=== PATIENT | female | born 1965 | race Caucasian/White ===

== ENCOUNTER 2019-12-19 09:14 | Emergency (ER) | payer MEDICARE, SELFPAY ==
[2019-12-19 09:22] VITALS: BP 134/78; PULSE 70; RESP 20; TEMP 36.7; O2SAT 99; BMI 26.6
--- NOTE | 2019-12-19 09:37 | ED_ITS ---
Documented by User: EM Beasley 12/19/19 16:08 HPI - General Adult General: Chief complaint: General Medical Stated complaint: RIGHT HIP LEFT RIB PAIN Time Seen by Provider: 12/19/19 09:28 History of Present Illness: HPI narrative: Patient is a 54-year-old female who comes to the ED with left rib pain and right hip pain. Patient states that 2 weeks ago she was pulling her 150 pound dog off of another dog and she fell back and the dog landed on her chest. Patient states she has had pleuritic left rib pain since that incident. Patient also had a fall a month and a half ago that has caused her right hip and right thigh pain. Patient [place] and [place]. Since that fall she has had right hip pain and some right thigh pain whenever she ambulates. Any pressure on that area causes pain as well. She describes the pain in the muscles of the thigh and hip area. Denies bladder or bowel incontinence, loss of sensation in the pelvis. Associated symptoms: Reports chest pain (Pleuritic left rib pain); Deny dyspnea, headache(s), nausea, rash, palpitations or vomiting Review of Systems Const: Denies: fever, chills or fatigue Eyes: Denies: change in vision or eye discomfort ENMT: Denies: throat pain, painful swallowing, nasal discharge or nasal congestion Card: Reports: chest pain (Pleuritic left rib pain); Denies: palpitations, edema, swelling of feet/ankles, shortness of breath on exertion or shortness of breath when lying down Resp: Denies: shortness of breath, productive cough or non-productive cough GI: Denies: abdominal pain, nausea, vomiting, diarrhea, constipation or blood in stool : Denies: flank pain, painful urination or blood in urine Musc: Reports: extremity pain (Right thigh pain) and joint pain (right hip pain); Denies: neck pain, back pain or extremity swelling Skin/Breast: Denies: rash or new lesion Neuro: Denies: headache, numbness in extremities or weakness in extremities PFS ED PFSH: Social History Smoking and tobacco status: current some day smoker Physical Exam Narrative: EXAM NARRATIVE: Patient is a 54-year-old female that is sitting comfortably on the exam bed when I enter the room. Patient appears in no acute distress or pain. Const: COMMON NORMALS: oriented x3 HENMT: COMMON NORMALS: normocephalic HEAD & SCALP: normocephalic MOUTH: oral and palatal mucosa normal THROAT: posterior oropharynx normal and uvula midline Neck/C-Spine: COMMON NORMALS: supple GENERAL: Yes normal visual inspection Resp: COMMON NORMALS: normal respiratory effort, no retractions, no use of accessory muscles and clear to auscultation bilaterally AUSCULTATION: clear to auscultation bilaterally Cardio: COMMON NORMALS: regular rate, regular rhythm, S1 normal heart sound, S2 normal heart sound, no gallops, no clicks, no murmurs and peripheral pulses 2+ throughout RATE: regular rate RHYTHM: regular rhythm HEART SOUNDS: S1 normal and S2 normal PERIPHERAL PULSES: pulses 2+ throughout GI: COMMON NORMALS: normal to inspection, nondistended, normoactive bowel sounds, soft to palpation, non-tender and no masses PALPATION: Yes soft : COMMON NORMALS: Yes no CVA tenderness BLADDER/KIDNEY EXAM: Yes no CVA tenderness Back/Pelvis: COMMON NORMALS: no CVA tenderness Extremity: GENERAL: Yes normal exam except as noted RIGHT LOWER EXTREMITY: Yes hip joint Right hip: Yes inspection (normal), Yes palpation (Tenderness on lateral side of hip), Yes ROM (normal with some pain) and Yes neurovascular exam (intact) and Yes upper leg Right upper leg: Yes inspection (normal), Yes palpation (tenderness upon palpation of muscles of right thigh.) and Yes neurovascular exam (intact) Neuro: COMMON NORMALS: oriented x3 and moves all extremities Skin: COMMON NORMALS: no rashes or lesions noted GENERAL SKIN EXAM: no rashes or lesions noted and dry skin Course Reevaluation(s): Reevaluation #1: Patient's pain and hip improved after Toradol and Norflex injection. Patient's pain was much better and she was ready to be discharged. Time: 11:30 Vital Signs: Vital signs: Vital Signs Temperature 98.0 F 12/19/19 09:22 Pulse Rate 65 12/19/19 12:09 Respiratory Rate 16 12/19/19 12:09 Blood Pressure 131/87 12/19/19 12:09 Pulse Oximetry 97 12/19/19 12:09 [facility] - General Adult Imaging Data^: CXR: Attestation: I personally reviewed and interpreted this imaging study as follows: Radiologist's impression: [address] [address] XRay Report Signed Patient: Amanda Alaniz Unit #: [id number] : 1965 3 Age/Sex: 54 / F ADM Date: 12/19/19 Loc: ER Room/Bed: Attending Dr: Ordering Provider/Ordering MD: Rene Delvalle Date of Service: 12/19/19 Procedure(s): XR ribs LT 2V* [id number] Accession Number(s): [id number] Report Number: [id number] WS: [id number] LEFT RIBS, MULTIPLE VIEWS HISTORY: left rib pain after injury to chest, pleuritic COMPARISON: 09/07/2012 Ribs: No rib fractures or bone destruction identified. Lungs and mediastinum: Visualized lung is clear. XR/XR ribs LT 2V* [id number] IMPRESSION: No LEFT rib fractures identified. Dictated By: Cherie Tejeda DO Signed By: Cherie Tejeda DO Signed Date/Time: 12/19/19 1056 DD/ 1055 Xray Ortho: Attestation: I personally reviewed and interpreted this imaging study as follows: Radiologist's impression: [address] [address] XRay Report Signed Patient: Amanda Alaniz Unit #: [id number] : 1965 Age/Sex: 54 / F ADM Date: 12/19/19 Loc: ER Room/Bed: Attending Dr: Ordering Provider/Ordering MD: Rene Delvalle Date of Service: 12/19/19 Procedure(s): XR hip RT 2-3V wo/w pel* 33271 Accession Number(s): [id number] Report Number: [id number] WS: [id number] Right hip, AP and frog-leg views, 12/19/2019 Clinical Data: fall and right hip pain Comparison: Right hip, 11/22/2012. Findings: No fractures or dislocations are seen. The hip joint is intact. The soft tissues are not remarkable. The adjacent pelvis is normal. XR/XR hip RT 2-3V wo/w pel* [id number] Impression: Negative right hip. Dictated By: Dalia Pool MD Signed By: Dalia Pool MD Signed Date/Time: 12/19/19 1044 DD/ 1043 Discharge Plan Discharge Patient Disposition: Home, Self-Care Clinical Impression: Strain of right hip and thigh Qualifiers: Encounter type: initial encounter Qualified Code(s): S76.011A - Strain of muscle, fascia and tendon of right hip, initial encounter Condition: Stable Prescriptions: New Robaxin-750 750 mg tablet 750 mg PO Q8H Qty: 20 RF: 0 ketorolac 10 mg tablet 10 mg PO Q6H PRN (Reason: pain) 5 Days Qty: 30 RF: 0 No Action Aleve 220 mg Tablet 440 - 660 mg PO PRN RF: 0 ibuprofen 200 mg Tablet 200 - 800 mg PO PRN RF: 0 escitalopram oxalate 20 mg tablet 20 mg PO DAILY RF: 0 Levemir FlexTouch U-100 Insuln 100 unit/mL (3 mL) insulin pen 35 unit SUBCUT DAILY RF: 0 Invokana 300 mg tablet 300 mg PO QAM RF: 0 Discharge Orders: Discharge Order (Routine); Ordered 12/19/19 Ordered By: Rene Delvalle Referrals: Tiffanie Nevarez DO [Primary Care Provider] - Discharge Diet: Regular Discharge Activity: Increase activity as tolerated Patient Instructions: Muscle Strain (ED), Hip Sprain (ED) Activity Restrictions/Additional Instructions: Follow-up with your PCP in 7 to 10 days for reevaluation. Take the Ketorolac as prescribed. Do not exceed taking the ketorolac for over 5 days. Stop taking any Aleve or ibuprofen while taking ketorolac. Take the Robaxin (muscle relaxer) at night before bed. Remember Robaxin can cause some drowsiness. Apply ice on hip to help with any pain. Discharge Date/Time: 12/19/19 12:10 Coding Level of Care Code ED Nurse Practitioner Hospitalist for Chg Fwd Exam Comprehensive Documented by User: Otis Stephen DO 12/19/19 17:46 HPI - General Adult General: Chief complaint: General Medical Stated complaint: RIGHT HIP LEFT RIB PAIN Time Seen by Provider: 12/19/19 09:28 PFSH ED PFSH: Social History Smoking and tobacco status: current some day smoker Course Vital Signs: Vital signs: Vital Signs Temperature 98.0 F 12/19/19 09:22 Pulse Rate 65 12/19/19 12:09 Respiratory Rate 16 12/19/19 12:09 Blood Pressure 131/87 12/19/19 12:09 Pulse Oximetry 97 12/19/19 12:09 MDM - General Adult MDM Narrative: Medical decision making narrative: Reviewed case with midlevel agree with assessment and plan Discharge Plan Discharge Patient Disposition: Home, Self-Care Clinical Impression: Strain of right hip and thigh Qualifiers: Encounter type: initial encounter Qualified Code(s): S76.011A - Strain of muscle, fascia and tendon of right hip, initial encounter Condition: Stable Prescriptions: New Robaxin-750 750 mg tablet 750 mg PO Q8H Qty: 20 RF: 0 ketorolac 10 mg tablet 10 mg PO Q6H PRN (Reason: pain) 5 Days Qty: 30 RF: 0 No Action Aleve 220 mg Tablet 440 - 660 mg PO PRN RF: 0 ibuprofen 200 mg Tablet 200 - 800 mg PO PRN RF: 0 escitalopram oxalate 20 mg tablet 20 mg PO DAILY RF: 0 Levemir FlexTouch U-100 Insuln 100 unit/mL (3 mL) insulin pen 35 unit SUBCUT DAILY RF: 0 Invokana 300 mg tablet 300 mg PO QAM RF: 0 Discharge Orders: Discharge Order (Routine); Ordered 12/19/19 Ordered By: Rene Delvalle Referrals: Tiffanie Nevarez DO [Primary Care Provider] - Discharge Diet: Regular Discharge Activity: Increase activity as tolerated Patient Instructions: Muscle Strain (ED), Hip Sprain (ED) Activity Restrictions/Additional Instructions: Follow-up with your PCP in 7 to 10 days for reevaluation. Take the Ketorolac as prescribed. Do not exceed taking the ketorolac for over 5 days. Stop taking any Aleve or ibuprofen while taking ketorolac. Take the Robaxin (muscle relaxer) at night before bed. Remember Robaxin can cause some drowsiness. Apply ice on hip to help with any pain. Discharge Date/Time: 12/19/19 12:10 Coding Level of Care Code ED Nurse Practitioner Hospitalist for Darrel Doll Exam Comprehensive
--- NOTE | 2019-12-19 09:59 | XR_ITS ---
WS: [id number] Right hip, AP and frog-leg views, 12/19/2019 Clinical Data: fall and right hip pain Comparison: Right hip, 11/22/2012. Findings: No fractures or dislocations are seen. The hip joint is intact. The soft tissues are not remarkable. The adjacent pelvis is normal. XR/XR hip RT 2-3V wo/w pel* 59551 Impression: Negative right hip.
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
[2019-12-19] MEDS: ketorolac 30 mg/mL INJ IM (10:08)
[2019-12-19] MEDS: orphenadrine 30 mg/mL Inj 2 mL 60 MG IM (10:08)
[2019-12-19 12:09] VITALS: BP 131/87; PULSE 65; RESP 16; O2SAT 97
== END 2019-12-19 12:10 | disposition home or self-care (01) ==
PROVIDERS: Emergency Provider Physician Assistant; PCP Family Medicine
DX: S76.011A Strain of muscle, fascia and tendon of right hip, initial encounter (principal); F17.200 Nicotine dependence, unspecified, uncomplicated; W01.0XXA Fall on same level from slipping, tripping and stumbling without subsequent striking against object, initial encounter; Y92.828 Other wilderness area as the place of occurrence of the external cause
CPT/HCPCS: 12345; 71100; 73502; 96372; 99281; 99283; J1885; J2360

== ENCOUNTER → 2020-04-30 13:26 | Outpatient (BNVA) | payer MEDICARE, SELFPAY | PROVIDERS: PCP Family Medicine; Visit Provider Nurse Practitioner Family | DX: E11.9 Type 2 diabetes mellitus without complications (principal); E78.5 Hyperlipidemia, unspecified | CPT/HCPCS: 80053; 80061; 83036; 85025 ==

== ENCOUNTER → 2020-05-03 10:15 | Outpatient (BNVA) | payer MEDICARE, SELFPAY | PROVIDERS: PCP Nurse Practitioner Family; Visit Provider Nurse Practitioner Family | DX: E11.9 Type 2 diabetes mellitus without complications (principal); M25.561 Pain in right knee; M25.562 Pain in left knee; Z79.4 Long term (current) use of insulin; F41.9 Anxiety disorder, unspecified; F32.9 Major depressive disorder, single episode, unspecified; E78.2 Mixed hyperlipidemia; G89.29 Other chronic pain; Z91.19 Patient's noncompliance with other medical treatment and regimen | CPT/HCPCS: 82043 ==

== ENCOUNTER → 2020-05-04 09:28 | Outpatient (BNVA) | payer MEDICARE, SELFPAY | PROVIDERS: PCP Nurse Practitioner Family; Visit Provider Nurse Practitioner Family | DX: M25.561 Pain in right knee (principal); M25.562 Pain in left knee | CPT/HCPCS: 73562 ==

== ENCOUNTER → 2020-05-19 16:31 | Outpatient (BNVA) | payer MEDICARE, SELFPAY | PROVIDERS: PCP Nurse Practitioner Family; Referring Provider Nurse Practitioner Family; Visit Provider Specialist | DX: M25.561 Pain in right knee (principal); M25.562 Pain in left knee; G89.29 Other chronic pain; M17.0 Bilateral primary osteoarthritis of knee | CPT/HCPCS: 73560; 73565 ==

== ENCOUNTER 2020-07-30 13:02 | Emergency (ER) | payer MEDICARE, MEDICAID, SELFPAY ==
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
[2020-07-30 13:10] VITALS: BP 138/80; PULSE 91; RESP 18; TEMP 37.1; O2SAT 97; BMI 27.6
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
[2020-07-30 14:16] VITALS: BP 111/68; PULSE 88; RESP 18; O2SAT 97
[2020-07-30 14:28] LABS: Glucose Point of Care 411 mg/dL (70-110)
[2020-07-30 14:30] LABS: Add Urine Microscopic? NO
[2020-07-30 14:34] LABS: Basophils % 0.4 %; Eosinophils # 0.1 10^3/uL (0.0-0.8); Eosinophils % 1.1 %; Hemoglobin 15.2 g/dL (11.5-15.3); Lymphocytes # 1.5 10^3/uL (0.8-4.8); Lymphocytes % 19.1 %; Mean Corpuscular Hemoglobin 29.7 pg (28.0-34.0); Mean Corpuscular Volume 89.8 fL (81-99); Monocytes # 0.5 10^3/uL (0.2-0.9); Monocytes % 6.1 %; Neutrophils # 5.86 10^3/uL (1.8-7.7); Neutrophils % 73.2 %; Nucleated Red Blood Cells % 0 %; Platelet Count 148 10^3/cmm (130-400); Red Blood Count 5.12 10^6/uL (4.1-5.3); Red Cell Distribution Width 11.8 % (12.1-15.1)
[2020-07-30 14:41] LABS: INR 0.91 (0.8-1.2)
[2020-07-30 14:46] LABS: Alanine Aminotransferase 49 U/L (0-33); Albumin Level 3.7 g/dL (3.5-5.2); Alkaline Phosphatase 120 IU/L (35-105); Aspartate Amino Transferase 25 U/L (0-32); Blood Urea Nitrogen 5 mg/dL (6-20); Calcium 8.8 mg/dL (8.5-10.5); Carbon Dioxide 24 mmol/L (22-29); Chloride 100 mmol/L (98-107); Globulin 3.1 g/dL (1.3-4.6); Glomerular Filtration Rate 127.6 mL/min (90-130); Glucose 457 mg/dL (65-115); Osmolality Calculated 297 mOsm/kg (285-295); Sodium 135 mmol/L (136-145); Total Bilirubin 0.3 mg/dL (0.15-1.2); Total Protein 6.8 g/dL (6.6-8.7)
[2020-07-30 14:54] LABS: Bilirubin Urine Neg (Negative); Blood Urine Neg (Negative); Glucose Urine UA 4+ (Normal); Ketones Urine Negative (Negative); Leukocyte Esterase Urine Negative (Negative); Nitrate Urine Negative (Negative); Protein Urine Neg (Negative); Urine Appearance Clear (CLEAR); Urine Color Yellow (Yellow); Urobilinogen Urine Neg (Negative); pH Urine 5 (5-7)
[2020-07-30 15:02] LABS: Alcohol Level < 10 mg/dL (0-10)
[2020-07-30 15:10] LABS: Amphetamines Screen Urine Negative (Negative); Barbiturates Screen Urine Negative (Negative); Benzodiazepines Screen Urine Positive (Negative); Cocaine Screen Urine Negative (Negative); Opiate Screen Urine Negative (Negative); PCP Screen Urine Negative (Negative); THC Screen Urine Positive (Negative)
[2020-07-30 15:16] VITALS: BP 141/79; PULSE 78; RESP 18; O2SAT 99
[2020-07-30 16:07] VITALS: BP 141/79; PULSE 78; RESP 18; O2SAT 99
== END 2020-07-30 16:07 | disposition left against medical advice (07) ==
PROVIDERS: Emergency Provider Emergency Medicine; PCP Nurse Practitioner Family
DX: Z04.1 Encounter for examination and observation following transport accident (principal); E11.69 Type 2 diabetes mellitus with other specified complication; Z79.899 Other long term (current) drug therapy; Z91.19 Patient's noncompliance with other medical treatment and regimen; Z53.21 Procedure and treatment not carried out due to patient leaving prior to being seen by health care provider; F17.210 Nicotine dependence, cigarettes, uncomplicated; M79.604 Pain in right leg
CPT/HCPCS: 12345; 36416; 73552; 73590; 80053; 80306; 80307; 81003; 82962; 85025; 85610; 96374; 99283

== ENCOUNTER → 2020-09-29 10:34 | Outpatient (BNVA) | payer MEDICARE, MEDICAID, SELFPAY | PROVIDERS: PCP Nurse Practitioner Family; Visit Provider Nurse Practitioner Family | DX: E11.69 Type 2 diabetes mellitus with other specified complication (principal); Z91.19 Patient's noncompliance with other medical treatment and regimen; E78.2 Mixed hyperlipidemia; F41.9 Anxiety disorder, unspecified; F32.9 Major depressive disorder, single episode, unspecified; R74.8 Abnormal levels of other serum enzymes; R53.83 Other fatigue | CPT/HCPCS: 80053; 80061; 81015; 82043; 83036; 83735; 85025; 86705; 86706; 86709; 86803; 87340 ==

== ENCOUNTER 2020-10-05 12:43 | Outpatient (CLI) | payer MEDICARE, MEDICAID, SELFPAY ==
--- NOTE | 2020-10-05 13:00 | MR_ITS ---
WS: [id number] MRI RIGHT HIP NONCONTRAST TECHNIQUE: Axial T1, axial T2 fat sat, coronal T1, coronal STIR, sagittal T2 fat sat, sagittal T1, an d sagittal T2 fat sat, of both hips. CLINICAL INFORMATION: M25.551 - Pain in right hip COMPARISON: None. FINDINGS: Advanced degenerative arthritis right hip with joint space narrowing. Subchondral cystic change with edema in the adjacent superolateral acetabulum extending into the ilium. Additional subchondral edema extends into the inferior acetabulum and adjacent inferior pubic ramus. Tiny amount of edema in the right femoral head. No subchondral collapse or avascular necrosis of the femoral head. Osteopenia. Normal bone marrow signal in the sacrum. Normal left hip. No inguinal lymphadenopathy. MR/MR hip RT wo con* [id number] IMPRESSION: 1. Advanced degenerative arthritis right hip with eear-ye-wvlc articulation. 2. Subchondral cystic change with prominent edema involving the superolateral acetabulum extending into the ilium and inferior medial acetabulum. 3. No evidence of avascular necrosis or femoral head collapse. 4. Normal bone marrow signal in the sacrum. 5. Left hip is normal in appearance.
== END 2020-10-05 12:44 | disposition home or self-care (01) ==
LOC: RADSHAW 12:48
PROVIDERS: PCP Nurse Practitioner Family; Visit Provider Nurse Practitioner Family
DX: M16.11 Unilateral primary osteoarthritis, right hip (principal)
CPT/HCPCS: 73721